=== PATIENT | female | born 1990 | race Caucasian/White ===

== ENCOUNTER 2024-09-20 15:04 | Emergency (ER) | payer SELFPAY ==
[2024-09-20 16:03] VITALS: BP 143/110; PULSE 94; RESP 16; TEMP 36.1; O2SAT 97; BMI 37.8
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
[2024-09-20 16:44] VITALS: BP 150/100; PULSE 94; RESP 16; TEMP 36.1; O2SAT 97
== END 2024-09-20 16:45 | disposition home or self-care (01) ==
PROVIDERS: Emergency Provider Emergency Medicine Emergency Medical Services
DX: H93.12 Tinnitus, left ear (principal); H92.02 Otalgia, left ear
CPT/HCPCS: 99282